=== PATIENT | male | born 2005 | race Caucasian/White ===

== ENCOUNTER 2024-03-30 06:55 | Day surgery (SDC) | payer BC ==
[2024-03-29 14:37] VITALS: BMI 24.4
[2024-03-30] MEDS ORDERED: Fentanyl 250 MCG/5 ML VIAL ONE (09:20)
[2024-03-30] MEDS ORDERED: Lidocaine 1% PF 5 ML VIAL ONE (09:20)
[2024-03-30] MEDS ORDERED: Midazolam HCl 2 mg/2 ml Vial ONE ×2 (09:20→09:46)
[2024-03-30] MEDS ORDERED: Dexamethasone 4 mg/ml Vial ONE (09:20)
[2024-03-30] MEDS ORDERED: PROPOFOL 20 ML ONE (09:20)
[2024-03-30] MEDS ORDERED: Rocuronium Bromide 10 MG/ML (10ML VIAL) ONE (09:20)
[2024-03-30] MEDS ORDERED: Ondansetron PF 4 MG/2 ML Vial ONE (09:20)
[2024-03-30] MEDS ORDERED: AFRIN NASAL MIST 15 ML BOT ONE ×3 (09:44→13:04)
[2024-03-30] MEDS ORDERED: Ferric Subsulfate 8 ML TOPICAL SOLN ONE (09:45)
[2024-03-30] MEDS ORDERED: Lidocaine 1% w/Epinephrine 1:200K 30 ML VIAL ONE (09:45)
[2024-03-30] MEDS ORDERED: Mupirocin 2% Ointment 22 GM Tube ONE (09:45)
[2024-03-30] MEDS ORDERED: methylPREDNISolone Acetate 40 mg/ml Vial ONE (09:51)
[2024-03-30] MEDS ORDERED: Dexamethasone 20 MG/5 ML VIAL ONE (10:34)
[2024-03-30] MEDS ORDERED: SUGAMMADEX SODIUM 200 MG/2 ML VIAL ONE (11:03)
[2024-03-30] MEDS ORDERED: HYDROcodone/Acetaminophen 5/325 mg Tablet ONE (12:35)
[2024-03-30] MEDS ORDERED: Ondansetron ODT 4 MG TAB ONE (12:57)
== END 2024-03-30 13:25 | disposition home or self-care (01) ==
LOC: CSHSDC 06:55
PROVIDERS: ATTEND Otolaryngology Plastic Surgery within the Head & Neck
PROC: 0CTQXZZ Resection of Adenoids, External Approach (ICD-10-PCS; principal; 2024-03-30)
PROC: 0CTPXZZ Resection of Tonsils, External Approach (ICD-10-PCS; principal; 2024-03-30)
PROC: 09BM8ZZ Excision of Nasal Septum, Via Natural or Artificial Opening Endoscopic (ICD-10-PCS; principal; 2024-03-30)
PROC: 09TL8ZZ Resection of Nasal Turbinate, Via Natural or Artificial Opening Endoscopic (ICD-10-PCS; principal; 2024-03-30)
PROC: 09BQ8ZZ Excision of Right Maxillary Sinus, Via Natural or Artificial Opening Endoscopic (ICD-10-PCS; 2024-03-30)
PROC: 09TL8ZZ Resection of Nasal Turbinate, Via Natural or Artificial Opening Endoscopic (ICD-10-PCS; 2024-03-30)
PROC: 09BR8ZZ Excision of Left Maxillary Sinus, Via Natural or Artificial Opening Endoscopic (ICD-10-PCS; 2024-03-30)
PROC: 09BV8ZZ Excision of Left Ethmoid Sinus, Via Natural or Artificial Opening Endoscopic (ICD-10-PCS; 2024-03-30)
PROC: 09BU8ZZ Excision of Right Ethmoid Sinus, Via Natural or Artificial Opening Endoscopic (ICD-10-PCS; 2024-03-30)
DX: J35.3 Hypertrophy of tonsils with hypertrophy of adenoids (principal); J32.4 Chronic pansinusitis; J34.2 Deviated nasal septum; J34.3 Hypertrophy of nasal turbinates; J35.01 Chronic tonsillitis; J34.9 Unspecified disorder of nose and nasal sinuses
CPT/HCPCS: J1010; J1100; J2250; J2405; J2704; J3010; Q0162